=== PATIENT | male | born 1975 | race Caucasian/White ===

== ENCOUNTER → 2019-10-13 | Outpatient (CLI) | payer OTHER | LOC: COL.RAD 09:32 | DX: M48.02 Spinal stenosis, cervical region (principal); M50.222 Other cervical disc displacement at C5-C6 level ==

== ENCOUNTER → 2020-03-28 | Outpatient (CLI) | payer OTHER | LOC: MHCPAIN 12:21 | DX: M47.812 Spondylosis without myelopathy or radiculopathy, cervical region (principal); M54.2 Cervicalgia; M25.511 Pain in right shoulder; G89.29 Other chronic pain | CPT/HCPCS: G0463 ==

== ENCOUNTER → 2020-03-30 | Outpatient (CLI) | payer OTHER | LOC: MHCPAIN 08:08 | DX: M54.12 Radiculopathy, cervical region (principal); G89.29 Other chronic pain | CPT/HCPCS: G0463; J1100; J2250; Q9967 ==